=== PATIENT | female | born 2000 | race Two or more races ===

== ENCOUNTER 2019-10-05 05:49 | Emergency (ER) | payer OTHER ==
[~2019-10-05] VITALS: Ht 157.5 cm; Wt 77.6 kg
[2019-10-05 05:51] VITALS: Ht 157.5 cm; Wt 77.6 kg
[2019-10-05 07:36] LABS: CALCIUM 9.1 mg/dL (8.5-10.1); CHLORIDE SERUM 103 mmol/L (98-107); CREATININE SERUM 0.8 mg/dL (0.6-1.0); GFR1 > 60 mL/min; GLUCOSE SERUM 103 mg/dL (74-106); POTASSIUM SERUM 3.9 mmol/L (3.5-5.1); SODIUM SERUM 138 mmol/L (136-145)
[2019-10-05 07:39] LABS: ALBUMIN 4.1 g/dL (3.4-5.0); ALKALINE PHOSPHATASE 72 U/L (46-116); ALT/SGPT 30 U/L (14-59); AST/SGOT 15 U/L (15-37); BILIRUBIN TOTAL 0.4 mg/dL (0.20-1.00); CHOLESTEROL 160 mg/dL (<200); CHOLESTEROL/HDL RATIO 4.6; HDL CHOLESTEROL 35 mg/dL (40-60); LIPASE 146 IU/L (73-393)
[2019-10-05 07:41] LABS: TOTAL PROTEIN, SERUM 8.9 g/dL (6.4-8.2); TRIGLYCERIDES 245 mg/dL (<150)
[2019-10-05 07:43] LABS: FREE T4 1.09 ng/dL (0.76-1.46); FREE THYROXINE INDEX 2.6 ug/dL (1.4-4.5); T4(THYROXINE) 8.5 ug/dL (4.7-13.3)
[2019-10-05 08:11] LABS: T3 TOTAL 1.36 ng/mL
[2019-10-05 08:11] LABS: UA SPECIFIC GRAVITY 1.025 (1.005-1.035); microscopic required? YES; urine erythrocyte 3+ (NEGATIVE)
[2019-10-05 08:15] LABS: BASOPHIL % 0.7 % (0-2); PLATELET COUNT 349 x10^3mcL (130-400); RED CELL DISTRIBUTION WIDTH 13.9 % (11.5-14.5)
[2019-10-05 08:29] LABS: AMPHETAMINE QUAL UR NONE DETECTED (See below)
[2019-10-05 09:00] VITALS: BP 124/71
== END 2019-10-05 09:00 | disposition home or self-care (01) ==
LOC: ED 05:49
PROVIDERS: Specialist
DX: R07.89 Other chest pain (principal); R06.02 Shortness of breath; Z90.49 Acquired absence of other specified parts of digestive tract
CPT/HCPCS: 36415; 36600; 83880; 84439; 85378; 87804; Q0092; Q9967